=== PATIENT | female | born 1960 | race Hispanic/Latino ===

== ENCOUNTER 2016-06-20 13:01 | Emergency (ER) | payer OTHER ==
[2016-06-20 13:23] VITALS: BMI 26.4
--- NOTE | 2016-06-20 14:31 | C.PDOC ---
History Of Present Illness 55 yr old female presents to the ER with complaints of body aches and chills for the past 4 days, fever for the past 2 days and dry cough which started yesterday. Time Seen by Provider: 06/20/16 14:21 Chief Complaint (Nursing): Fever History Per: Patient History/Exam Limitations: no limitations Onset/Duration Of Symptoms: Days Current Symptoms Are (Timing): Still Present Sick Contacts (Context): None Past Medical History Reviewed: Historical Data, Nursing Documentation, Vital Signs Vital Signs: Last Vital Signs Temp 98.7 F 06/20/16 16:39 Pulse 93 H 06/20/16 16:39 Resp 16 06/20/16 16:39 BP 111/69 06/20/16 16:39 Pulse Ox 95 06/20/16 16:39 - [employer] Procedures TETANUS TOXOID ADMINIST (11/26/12) Family History: States: No Known Family Hx - Social History Hx Tobacco Use: No Hx Alcohol Use: No Hx Substance Use: No - Immunization History Hx Tetanus Toxoid Vaccination: No Hx Influenza Vaccination: Yes Hx Pneumococcal Vaccination: No Review Of Systems Except As Marked, All Systems Reviewed And Found Negative. Constitutional: Positive for: Fever (Subjective), Chills, Other ((+) Body aches) Cardiovascular: Negative for: Chest Pain Respiratory: Positive for: Cough (dry). Negative for: Shortness of Breath, Sputum Gastrointestinal: Negative for: Nausea, Vomiting, Abdominal Pain, Diarrhea Neurological: Negative for: Weakness, Numbness Physical Exam - Physical Exam Appears: Non-toxic, No Acute Distress Skin: Warm, Dry Head: Atraumatic, Normacephalic Ear(s): Bilateral: Normal Oral Mucosa: Moist Throat: Normal, No Erythema, No Exudate, No Drooling Neck: Normal, Normal ROM, Supple Chest: Symmetrical, No Tenderness Cardiovascular: Rhythm Regular, No Murmur Respiratory: Rhonchi (Left lower lung feild ), No Stridor, No Wheezing Gastrointestinal/Abdominal: Normal Exam, Soft, No Tenderness, No Guarding, No Rebound Extremity: Normal ROM, No Swelling Neurological/Psych: Oriented x3, Normal Speech, Normal Motor ED Course And Treatment - Laboratory Results Result Diagrams: 06/20/16 14:40 06/20/16 14:40 O2 Sat by Pulse Oximetry: 97 - Radiology CXR: Interpreted by Me, Viewed By Me CXR Interpretation: Yes: Other (Left lower lobe opacity.) Medical Decision Making Medical Decision Making: pt well-appearing. given IVF, IV rocephin and azithro in ED. dc on po abx for CAP. f/u and return prec advised. Disposition - Disposition Disposition: HOME/ ROUTINE Disposition Time: 16:31 Condition: STABLE Additional Instructions: Please follow up with your doctor. Return to the ER for any worsening symptoms or for any other concerns. Prescriptions: Amoxicillin/Clavulanate [Augmentin 875 MG-125 MG] 1 tab PO BID #20 tab Azithromycin [Zithromax] 250 mg PO DAILY #6 tab Instructions: Community Acquired Pneumonia (ED) Forms: General Discharge Instructions, Work Excuse - Clinical Impression Clinical Impression: Community acquired pneumonia - Scribe Statement The provider has reviewed the documentation as recorded by the Pauline Cooper Provider Attestation: All medical record entries made by the Florecitaibe were at my direction and personally dictated by me. I have reviewed the chart and agree that the record accurately reflects my personal performance of the history, physical exam, medical decision making, and the department course for this patient. I have also personally directed, reviewed, and agree with the discharge instructions and disposition.
[2016-06-20] MEDS ORDERED: Sodium Chloride 0.9% 1,000 ML IV ONE (14:34)
[2016-06-20] MEDS ORDERED: Sodium Chloride 0.9% 1,000 ML ONE (14:39)
[2016-06-20 14:43] LABS: BASO % 0.3 % (0.0-2.0); EOS % 0.1 % (0.0-4.0); HEMATOCRIT 33.5 % (34.0-47.0); LYMPH # 0.7 K/uL (1.0-4.3); LYMPH % 7.5 % (20.0-40.0); MEAN CELL VOLUME 90.5 fL (81.0-99.0); MEAN CORPUSCULAR HEMOGLOBIN 31.2 pg (27.0-31.0); MEAN CORPUSCULAR HGB CONC 34.4 g/dL (33.0-37.0); MEAN PLATELET VOLUME 8.4 fL (7.2-11.7); MONO # 0.9 K/uL (0.0-0.8); MONO % 10.4 % (0.0-10.0); PLATELET COUNT 183 K/uL (130-400); RED CELL DISTRIBUTION WIDTH 13.6 % (11.5-14.5); WHITE BLOOD COUNT 8.8 K/uL (4.8-10.8)
[2016-06-20] MEDS ORDERED: Azithromycin 500 MG in Sodium Chloride 0.9% 250 ML IVPB STA (14:49)
--- NOTE | 2016-06-20 14:55 | RAD ---
HISTORY: cough fever COMPARISON: Chest x-ray performed 10/21/13 TECHNIQUE: Chest PA and lateral FINDINGS: LUNGS: Biapical pleural thickening. Left lower lobe opacity compatible with pneumonia. Please note that chest x-ray has limited sensitivity for the detection of pulmonary masses. PLEURA: No significant pleural effusion identified. No definite pneumothorax . CARDIOVASCULAR: The cardiomediastinal silhouette appears within normal limits of size. OSSEOUS STRUCTURES: No acute osseous abnormality identified. VISUALIZED UPPER ABDOMEN: Unremarkable. OTHER FINDINGS: None. IMPRESSION: Left lower lobe opacity compatible with pneumonia.
[2016-06-20] MEDS ORDERED: Azithromycin 500mg/250ML NS 250 ML IVPB ONE (15:17)
[2016-06-20] MEDS ORDERED: cefTRIAXone IV 1 gm in Dextros 50 ML IVPB ONE (15:17)
[2016-06-20 15:27] LABS: CHLORIDE 96 mmol/L (98-107); POTASSIUM 3.5 mmol/L (3.6-5.2); SODIUM 136 mmol/L (132-148)
[2016-06-20 15:29] LABS: ALKALINE PHOSPHATASE 48 U/L (38-126); AST/SGOT 21 U/L (14-36); BILIRUBIN,TOTAL 0.8 mg/dL (0.2-1.3); CARBON DIOXIDE 24 mmol/L (22-30); GFR AFRICAN-AMERICAN > 60; TOTAL PROTEIN 7.1 g/dL (6.3-8.3)
[2016-06-20 15:30] LABS: ALT/SGPT 24 U/L (9-52); BLOOD UREA NITROGEN 10 mg/dL (7-17); CALCIUM 8.5 mg/dl (8.6-10.4); GLUCOSE,RANDOM 96 mg/dL (65-105); NEUTROPHIL 83 % (50-75); TOTAL CELLS COUNTED 100
[2016-06-20 16:40] VITALS: BP 111/69; PULSE 93; RESP 16; TEMP 98.7
[2016-06-21 13:27] VITALS: O2SAT 97
== END 2016-06-20 16:57 | disposition home or self-care (01) ==
LOC: C.ER 13:01
DX: J18.9 Pneumonia, unspecified organism (principal)

== ENCOUNTER 2017-12-11 10:09 | Day surgery (SDC) | payer OTHER ==
[2017-12-09 14:18] VITALS: BMI 26.1
[2017-12-11] MEDS ORDERED: Midazolam 2 MG/2 ML VIAL ONE (11:24)
[2017-12-11] MEDS ORDERED: Propofol 10 mg/ml Inj (20 ML) ONE ×3 (11:24→11:30)
[2017-12-11] MEDS ORDERED: Bupivacaine 0.25% 20 ML INJ IJ ONE (11:30)
[2017-12-11] MEDS ORDERED: Lidocaine 2% MPF (5 ml) Inj ONE (11:30)
[2017-12-11] MEDS ORDERED: Propofol 10 mg/ml 1,000 MG/100 ML VIAL ONE (11:31)
[2017-12-11] MEDS: ceFAZolin IV 1 gm in Dextrose 1 GM/50 ML BAG IVPB ONE ×2 (11:50→13:17)
[2017-12-11] MEDS ORDERED: Dexamethasone 4 mg/1 ml ONE (12:34)
[2017-12-11] MEDS ORDERED: Oxycodone/Acetaminophen 5/325 mg Tab PO PRN ×2 (12:59)
--- NOTE | 2017-12-11 13:18 | PCM.SURG1 ---
Surgeon's Initial Post Op Note - Surgeon's Notes Surgeon: Dr. John Bonilla, DPM Stull Hewer: Dr. Dipesh De La Cruz, PGY2 Type of Anesthesia: IV Sedation, Local Anesthesia Administered By: Dr. Cooper Pre-Operative Diagnosis: Hallux Limitus of right foot Operative Findings: See dication report. M- 3-0 vicryl, 4-0 nylon I- 20 cc 1:1 2% lidocaine plain and 0.25% marcaine plain, 4 mg dexamethasone Post-Operative Diagnosis: Same Operation Performed: Cheilectomy of right first metatarsal Specimen/Specimens Removed: Bone right foot Estimated Blood Loss: EBL {In ML}: 5 Blood Products Given: N/A Drains Used: No Drains Post-Op Condition: Good Date of Surgery/Procedure: 12/11/17 Time of Surgery/Procedure: 13:18
[2017-12-11 13:33] VITALS: O2SAT 100
--- NOTE | 2017-12-11 13:33 | RAD ---
Date of service: 12/11/2017 PROCEDURE: Right Foot Radiographs. HISTORY: s/p right foot hallux cheilectomy COMPARISON: Not available FINDINGS: BONES: Three views of the right foot are submitted. Patient is status post bunionectomy. No fracture. No lytic or blastic osseous lesion. No osteotomy evident elsewhere. JOINTS: Normal. SOFT TISSUES: Postoperative changes in soft tissues about the 1st metatarsal head. OTHER FINDINGS: None. IMPRESSION: Right bunionectomy.
[2017-12-11 13:41] VITALS: BP 123/79; PULSE 66; RESP 21; TEMP 97.7
--- NOTE | 2017-12-14 07:57 | OP ---
PROCEDURE DATE: 12/11/2017 PATIENT AGE: 57. PATIENT SEX: Female. SURGEON: John Bonilla DPM FLANGE MACHINE OPERATOR: Dipesh De La Cruz DPM, PGY-2 ANESTHESIOLOGIST: Dr. Cooper. ANESTHESIA: IV sedation with local. PREOPERATIVE DIAGNOSIS: Hallux limitus of right foot. POSTOPERATIVE DIAGNOSIS: Hallux limitus of right foot. NAME OF PROCEDURE: Cheilectomy of right first metatarsophalangeal joint. INDICATIONS: The patient is a 57-year-old female with the above-mentioned diagnosis. The patient has exhausted all conservative treatment at this time and now required surgical intervention. The patient signed the consent after careful explanation of risks, benefits, complications and alternatives for surgical procedure. No guarantees were given nor implied. NPO status was confirmed prior to taking the patient to the OR. PREPARATION: The patient was brought into the operating room and placed on the operating room table in supine position. Time-out was performed for identification of the correct patient and procedure. After induction of IV sedation, the patient received a total of 20 mL of 1:1 mixture of 0.25% Marcaine plain and 2% lidocaine plain in a local block fashion to the first ray of the right foot. The right lower extremity was then prepped and draped in the normal sterile manner, and the procedure began. A pneumatic ankle tourniquet at a pressure setting of 250 mmHg was utilized with the entirety of the procedure. PROCEDURE #1: Attention was then turned to the right metatarsophalangeal joint where it was noted that the right hallux had very limited dorsiflexion range of motion. Using a #15 blade, approximately 4-cm longitudinal incision that was parallel to the extensor hallucis longus tendon was made. Sharp and blunt dissection was then utilized down to the level of the first metatarsal with care taken to retract all vital neurovascular status and with cauterization of all bleeders as necessary. All soft tissue was then removed from the dorsal and medial aspects of the first metatarsal head as well as the dorsal and medial aspects of the first proximal phalanx base. At this time, the metatarsophalangeal joint was explored, and it was noted that three osseous loose bodies were present more than in the joint itself. These bodies were removed using pickups without incident and sent to Pathology for pathological examination. It was also noted at this time that there was a large dorsal osseous spur on the first metatarsal. This excess bony formation was excised utilizing an oscillating saw and a football rasp. Any remaining prominent dorsal or medial bone found on the first metatarsal head was also rasped down until a smooth even surface was appreciated on the metatarsal head. Utilizing a rongeur, all bony prominences on the base of the first proximal phalanx were also excised. All bony specimens were sent to Pathology for pathological examination. At this time, the first metatarsal head and the base of the proximal phalanx were palpated to ensure there were no remaining excessive bony protuberances and none were found. The surgical site was then flushed with copious amounts of normal sterile saline. The capsular layer and subcutaneous layer were closed with Vicryl suture, and the skin was reapproximated in a running subcuticular fashion using 4-0 nylon suture. Surgical site was then injected with 4 mg of dexamethasone and dressed with Betadine-soaked Adaptic, 4x4 gauze, Kerlix, and Coban, and the procedure was completed. POSTOPERATIVE CONDITION: The patient tolerated the anesthesia and the procedure well and was escorted to the recovery room with vital signs stable and neurovascular status intact to the right lower extremity. The patient is to remain weightbearing as tolerated with the use of a cane and a surgical shoe and is to keep her dressings clean, dry, and intact at all times and is to follow up with Dr. Bonilla in his office on an outpatient basis. Dipesh De La Cruz DPM John Bonilla DPM
== END 2017-12-11 14:40 | disposition home or self-care (01) ==
LOC: C.SDS 10:09
PROVIDERS: ATTEND Podiatrist Foot & Ankle Surgery
DX: M20.5X1 Other deformities of toe(s) (acquired), right foot (principal)
CPT/HCPCS: 28289; 73630; 88305; 97116; 97161; G8978; G8979; G8980; J0690; J1100; J2250; J2704; J3010

== ENCOUNTER 2018-01-08 10:13 | Day surgery (SDC) | payer OTHER ==
[2017-12-09 14:18] VITALS: BMI 26.1
[2018-01-08] MEDS ORDERED: Propofol 10 mg/ml Inj (20 ML) ONE ×3 (11:52→12:34)
[2018-01-08] MEDS ORDERED: Midazolam 2 MG/2 ML VIAL ONE ×2 (11:52→12:58)
[2018-01-08] MEDS ORDERED: Dexamethasone 4 mg/1 ml ONE (12:10)
[2018-01-08] MEDS ORDERED: LIDOCAINE 2% PF (2ML) ONE (12:10)
[2018-01-08] MEDS ORDERED: Lactated Ringer's 1,000 ML IV ONE (12:10)
[2018-01-08] MEDS: ceFAZolin 1 gm in NS 1 GM/100 ML BAG IVPB ONE ×2 (12:15→12:58)
[2018-01-08] MEDS: Bupivacaine 0.25% 20 ML INJ IJ ONE ×2 (12:20→12:57)
[2018-01-08] MEDS: LIDOCAINE 2% PF (2ML) ONE ×2 (12:20→12:58)
--- NOTE | 2018-01-08 13:36 | PCM.SURG1 ---
Surgeon's Initial Post Op Note - Surgeon's Notes Surgeon: Dr. Irene DPM Md Pediatric Allergist: Silver Rivera DPM PGY2 Type of Anesthesia: IV Sedation, Local (16cc 1:1 mixture 2% lidocaine plain, 0.25% marcaine plain) Anesthesia Administered By: Dr. Bhatti Pre-Operative Diagnosis: Left foot hallux rigidus Operative Findings: See operative report. Materials: 2-0 vicryl, 3-0 vicryl, 4- 0 nylon. Injectables: 1mg Dexamethasone, 5cc 0.25% marcaine plain Post-Operative Diagnosis: Same as above Operation Performed: Left foot 1st metatarsal cheilectomy Specimen/Specimens Removed: 1st metatarsal bone Estimated Blood Loss: EBL {In ML}: 1 Blood Products Given: N/A Drains Used: No Drains Post-Op Condition: Good Date of Surgery/Procedure: 01/08/18 Time of Surgery/Procedure: 13:36
[2018-01-08] MEDS ORDERED: Oxycodone/Acetaminophen 5/325 mg Tab PO PRN ×2 (13:39)
[2018-01-08 13:48] VITALS: O2SAT 100
[2018-01-08 15:41] VITALS: BP 97/51; PULSE 78; RESP 20; TEMP 97.8
--- NOTE | 2018-01-09 14:02 | RAD ---
Date of service: 01/08/2018 PROCEDURE: Left Foot Radiographs. HISTORY: s/p left 1st metatarsal cheilectomy COMPARISON: Comparison made with prior radiographs of the left foot dated 09/12/2011 FINDINGS: BONES: Interval cheilectomy the (removal of a osteophyte-bone spur) arising from the dorsal aspect base of the 1st metatarsal.. There appears to be overlying mild dorsal soft tissue swelling. Small plantar surface calcaneal enthesophyte JOINTS: Degenerative changes 1st MTP joint as well as 1st DIP joint. SOFT TISSUES: As above OTHER FINDINGS: None. IMPRESSION: Interval cheilectomy the (removal of a osteophyte-bone spur) arising from the dorsal aspect base of the 1st metatarsal.. There appears to be overlying mild dorsal soft tissue swelling. Small plantar surface calcaneal enthesophyte
--- NOTE | 2018-01-13 06:12 | OP ---
PROCEDURE DATE: 01/08/2018 PREOPERATIVE DIAGNOSIS: Left foot hallux rigidus. POSTOPERATIVE DIAGNOSIS: Left foot hallux rigidus. PROCEDURE PERFORMED: Left foot first metatarsal cheilectomy. SURGEON: John Bonilla DPM. BOILER OPERATOR HELPER: Nate Rivera DPM, PGY-2. TYPE OF ANESTHESIA: IV sedation with local, 16 mL of 1:1 mixture of 2% lidocaine plain and 0.25% Marcaine plain. ANESTHESIOLOGIST: Merlyn Loera MD. INDICATIONS: The patient is a 57-year-old female with the above-mentioned diagnosis. The patient is being treated by Dr. Bonilla on an outpatient basis, where she has exhausted multiple forms of conservative treatment including but not limited to sugar modification, padding, and offloading, at home physical therapy and stretching exercises. The patient seeks surgical intervention at this time. The patient signed a consent after careful explanation of risks, benefits, alternatives and complications to the proposed procedure and wishes to proceed. No guarantees were given nor implied. N.p.o. was confirmed prior to taking the patient to the operating room. PREPARATION: The patient was brought in to the operating room and placed on the operating room table in a supine position. Time-out was performed for identification of the correct patient and procedure. After the induction of IV sedation, a total of 16 mL of 1:1 mixture of 2% lidocaine plain and 0.25% Marcaine plain was administered in a Santos block type fashion. A pneumatic ankle tourniquet was placed in the supramalleolar position. After local anesthesia was achieved, the left foot was then prepped and draped in normal sterile manner. An esmarch was used to exsanguinate the limb. The tourniquet was inflated to 250 mmHg and the procedure began. DESCRIPTION OF PROCEDURE: Left foot first metatarsal cheilectomy: Attention was directed to the dorsal aspect of the first metatarsal head of the left foot where approximately 6 cm linear longitudinal incision was made median and lateral to the tendon of the extensor hallucis longus and involved contour of the deformity. The incision was deepened through the subcutaneous tissue and using sharp and blunt dissection, care was taken to identify and retract all neurovascular structures. All bleeders were cauterized and ligated as necessary. At this time, a linear capsulotomy was performed over the dorsal aspect of the first metatarsophalangeal joint. The periosteal and capsular structures were then carefully dissected free of their osseous attachments and reflected medially and laterally thus exposing the head of the first metatarsal and the operative site. Next, using a sagittal saw, the dorsal and medial prominences were resected and passed from the operative field. All rough edges were then smoothed down with an oscillating rasp. Once the edges were seemed to be smoothed down, the wound was flushed with copious amounts of normal saline. Periosteal and capsular structures were reapproximated and using 2-0 Vicryl. Redundant capillary tissues were resected as necessary. The subcutaneous tissue was reapproximated using 3-0 Vicryl and skin was reapproximated using 4-0 nylon in a mixture of horizontal mattress and simple interrupted suture techniques. Following this, the surgical site was injected with 1 mg of dexamethasone and 5 mL of 0.25% Marcaine plain. Postoperative bandages included Betadine-soaked Adaptic, 4x4s, gauze, Lanre and Coban. POSTOPERATIVE CONDITION: The patient tolerated the procedure and anesthesia well and was escorted to the recovery room with vital signs stable and neurovascular status intact to the left lower extremity. The patient is to remain weightbearing to the heel on a surgical shoe and will follow up with Dr. Bonilla in office on an outpatient basis. Nate Rivera DPM John Bonilla DPM
== END 2018-01-08 15:00 | disposition home or self-care (01) ==
LOC: C.SDS 10:13
PROVIDERS: ATTEND Podiatrist Foot & Ankle Surgery
DX: M20.22 Hallux rigidus, left foot (principal)
CPT/HCPCS: 28289; 73630; 88304; J0690; J1100; J2001; J2250; J2405; J2704; J3010; J7120